=== PATIENT | male | born 1960 | race Hispanic/Latino ===

== ENCOUNTER 2017-03-23 12:50 | Emergency (ER) | payer BC, SELFPAY ==
[2017-03-23 13:41] LABS: #Lymphocytes 1.3 thou/uL (1.20-3.40); #Monocytes 0.3 thou/uL (0.11-0.59); %Basophils 0.4 % (0.0-1.0); %Eosinophils 0.7 % (0.0-10.0); %Lymphocytes 22.4 % (21.0-51.0); Hematocrit 47.7 % (42.0-52.0); Mean Platelet Volume 7.1 fL (7.4-10.4); Red Blood Cell (RBC) Count 5.39 mill/uL (4.70-6.10); White Blood Cell (WBC) Count 5.7 thou/uL (4.8-10.8)
[2017-03-23 14:08] LABS: ALT (SGPT) 16 U/L (8-55); AST (SGOT) 13 U/L (5-34); Alkaline Phosphatase 90 U/L (40-150); Anion Gap 11 mmol/L (10-20); BUN (Urea Nitrogen) 10 mg/dL (8.4-25.7); Bilirubin, Total 0.7 mg/dL (0.2-1.2); Calc. Creatinine Clearance 0 mL/min (70-130); Calcium 9.9 mg/dL (7.8-10.44); Carbon Dioxide 27 mmol/L (22-29); Chloride 104 mmol/L (98-107); Estimated GFR-MDRD 77; Globulin 4.1 g/dL (2.4-3.5); Protein, Total 8.3 g/dL (6.0-8.3)
[2017-03-23 14:29] LABS: Troponin I Less than 0.010 ng/mL (< 0.028)
--- NOTE | 2017-03-23 14:30 | RAD ---
CHEST 1 VIEW: Date: 03/23/17 HISTORY: Chest pain. COMPARISON: 01/27/17. FINDINGS: Cardiac silhouette is magnified by projection. Pulmonary vasculature is unremarkable. Mediastinum is midline. There is no lobar consolidation or evidence of pneumothorax. exhibition carver leads overlie the chest. IMPRESSION: No active cardiopulmonary abnormalities are demonstrated. POS: H
--- NOTE | 2017-03-23 14:54 | CT ---
NONCONTRAST ENHANCED CT IMAGES LUMBAR SPINE: HISTORY: Back pain. FINDINGS: Axial images are obtained with coronal and sagittal reconstructions. T12-L1: Unremarkable. L1-2: No evidence of disk herniations or spinal stenosis seen. L2: There is a large interosseous hemangioma, diameter measuring approximately 2.4 x 2.7 cm. L2-3: Unremarkable. L3: There is a small central L3 interosseous hemangioma, diameter measuring approximately 9 mm. L3-4: Unremarkable. L4-5: There is a mild broad-based disk bulge. Mild facet hypertrophy is seen. Central canal and n eural foramen are patent. L4-S1: Vacuum disk changes seen. Disk space height loss is seen. Bilateral facet hypertrophy is s een. There is a broad-based disk-osteophyte complex posteriorly compressing the thecal sac resultin g in minimal but not significant evidence of central spinal stenosis seen. Mild to moderate bilater al neural foraminal narrowing is seen due to facet as well as osteophyte encroachment. IMPRESSION: L5-S1 disk desiccation and disk-osteophyte complex. POS: [facility]
[2017-03-23] MEDS ORDERED: Dexamethasone 4 mg/ml Vial ONE (15:27)
--- NOTE | 2017-03-23 16:51 | MRI ---
MRI LUMBAR SPINE WITH AND WITHOUT GADOLINIUM CONTRAST: 03/23/17 HISTORY: Low back pain. Disc herniation. COMPARISON: CT examination from 03/23/17. FINDINGS: Vertebral body heights and alignment are maintained. Large hemangioma is apparent within the L2 vert ebral body. Smaller hemangioma is evident in the L3 vertebral body. T12-L1, L1-2, L2-3, L3-4: The central canal and neural foramina are patent. L4-5: There is desiccation of the intervertebral disc. Mild disc bulge is present without significan t central canal stenosis. The neural foramina are patent. L5-S1: There is disc space narrowing and a small posterior central disc protrusion. Minimal effaceme nt of the thecal sac results. Degenerative changes result in moderate bilateral foraminal stenoses, left greater than right. IMPRESSION: Degenerative changes are most pronounced at the lumbosacral junction, with stenosis of each neural f oramen, left greater than right. Clinical correlation regarding the L5 dermatomes is required. POS: [facility]
== END 2017-03-23 17:50 | disposition home or self-care (01) ==
LOC: ERS 12:50
DX: M51.16 Intervertebral disc disorders with radiculopathy, lumbar region (principal); E78.5 Hyperlipidemia, unspecified; F41.9 Anxiety disorder, unspecified; I10 Essential (primary) hypertension; J45.909 Unspecified asthma, uncomplicated
CPT/HCPCS: 36415; 71010; 72131; 72158; 80053; 82553; 84484; 85025; 93005; 96374; 96375; J1100; J2270

== ENCOUNTER 2017-03-27 17:45 | Emergency (ER) | payer SELFPAY | END 2017-03-27 20:27 | disposition home or self-care (01) | LOC: ERS 17:45 | DX: M48.061 Spinal stenosis, lumbar region without neurogenic claudication (principal); E78.5 Hyperlipidemia, unspecified; I10 Essential (primary) hypertension; J45.909 Unspecified asthma, uncomplicated; F41.9 Anxiety disorder, unspecified | CPT/HCPCS: 96374; J2270 ==

== ENCOUNTER 2018-04-06 02:55 | Emergency (ER) | payer BC, SELFPAY ==
[2018-04-06] MEDS ORDERED: predniSONE 20 MG TAB ONE (04:38)
[2018-04-06 04:51] LABS: #Eosinphils 0.1 thou/uL (0.0-0.7); #Lymphocytes 1.5 thou/uL (1.20-3.40); #Monocytes 0.4 thou/uL (0.11-0.59); #Neutrophils 5.2 thou/uL (1.40-6.50); %Basophils 0.6 % (0.0-1.0); %Eosinophils 1.2 % (0.0-10.0); %Lymphocytes 20.2 % (21.0-51.0); Hemoglobin 14.7 g/dL (14.0-18.0); Mean Corpuscular Hemoglobin 29.2 pg (27.0-31.0); Mean Corpuscular Volume 85.9 fL (78.0-98.0); Mean Platelet Volume 7.7 fL (7.4-10.4); Platelet Count 266 thou/uL (130-400); RBC Distribution Width 12.3 % (11.5-14.5); Red Blood Cell (RBC) Count 5.03 mill/uL (4.70-6.10); White Blood Cell (WBC) Count 7.3 thou/uL (4.8-10.8)
[2018-04-06 05:03] LABS: ALT (SGPT) 26 U/L (8-55); AST (SGOT) 18 U/L (5-34); Alkaline Phosphatase 108 U/L (40-150); Anion Gap 14 mmol/L (10-20); BUN (Urea Nitrogen) 21 mg/dL (8.4-25.7); Bilirubin, Total 0.6 mg/dL (0.2-1.2); Calc. Creatinine Clearance 0 mL/min (70-130); Calcium 9.5 mg/dL (7.8-10.44); Carbon Dioxide 22 mmol/L (22-29); Chloride 107 mmol/L (98-107); Estimated GFR-MDRD 73; Globulin 3.9 g/dL (2.4-3.5); Glucose 131 mg/dL (70-105); Potassium 3.9 mmol/L (3.5-5.1); Protein, Total 7.9 g/dL (6.0-8.3); Sodium 139 mmol/L (136-145)
--- NOTE | 2018-04-06 08:34 | RAD ---
CHEST 1 VIEW: COMPARISON: 03/23/2017. HISTORY: Cough. FINDINGS: Normal cardiac silhouette. The pulmonary vessels and hilum are normal. Costophrenic angles are bernardino r. No masses or consolidation. No pneumothorax or osseous abnormalities. IMPRESSION: No acute cardiopulmonary process. POS: [facility]
== END 2018-04-06 06:00 | disposition home or self-care (01) ==
LOC: ERS 02:55
DX: J45.991 Cough variant asthma (principal); E78.5 Hyperlipidemia, unspecified; I10 Essential (primary) hypertension; F41.9 Anxiety disorder, unspecified
CPT/HCPCS: 36415; 71045; 80053; 85025; J7506; J7620

== ENCOUNTER 2018-04-22 06:45 | Emergency (ER) | payer BC ==
[2018-04-22] MEDS ORDERED: Ondansetron PF 4 MG/2 ML Vial ONE (07:22)
[2018-04-22] MEDS ORDERED: Morphine 4 MG/ML VIAL ONE (07:22)
[2018-04-22 07:24] LABS: #Eosinphils 0.2 thou/uL (0.0-0.7); #Lymphocytes 1.8 thou/uL (1.20-3.40); #Monocytes 0.7 thou/uL (0.11-0.59); #Neutrophils 6.1 thou/uL (1.40-6.50); %Basophils 0.4 % (0.0-1.0); %Eosinophils 1.7 % (0.0-10.0); %Lymphocytes 20.8 % (21.0-51.0); %Monocytes 7.6 % (0.0-10.0); %Neutrophils 69.5 % (42.0-75.0); Hemoglobin 15.1 g/dL (14.0-18.0); Mean Corpuscular Hemoglobin 28.9 pg (27.0-31.0); Mean Corpuscular Volume 87.6 fL (78.0-98.0); Mean Platelet Volume 7.9 fL (7.4-10.4); Platelet Count 263 thou/uL (130-400); RBC Distribution Width 12.6 % (11.5-14.5); Red Blood Cell (RBC) Count 5.23 mill/uL (4.70-6.10); White Blood Cell (WBC) Count 8.7 thou/uL (4.8-10.8)
[2018-04-22 07:31] LABS: ALT (SGPT) 29 U/L (8-55); AST (SGOT) 20 U/L (5-34); Albumin 3.9 g/dL (3.5-5.0); Alkaline Phosphatase 99 U/L (40-150); Anion Gap 11 mmol/L (10-20); BUN (Urea Nitrogen) 10 mg/dL (8.4-25.7); Bilirubin, Total 0.6 mg/dL (0.2-1.2); Calc. Creatinine Clearance 0 mL/min (70-130); Calcium 9.4 mg/dL (7.8-10.44); Carbon Dioxide 26 mmol/L (22-29); Chloride 104 mmol/L (98-107); Estimated GFR-MDRD 86; Globulin 3.9 g/dL (2.4-3.5); Glucose 110 mg/dL (70-105); Lipase 16 U/L (8-78); Potassium 4.3 mmol/L (3.5-5.1); Protein, Total 7.8 g/dL (6.0-8.3); Sodium 137 mmol/L (136-145)
[2018-04-22 07:48] LABS: Bilirubin Negative (Negative); Blood, Urine Negative (Negative); Clarity CLEAR (Clear); Glucose, Urine (Dipstick) Negative (Negative); Leukocyte Negative (Negative); Nitrite Negative (Negative); Protein, Urine (Dipstick) Negative (Neg-Trace); Specific Gravity, Urine 1.012 (1.002-1.036); Urobilinogen 0.2 mg/dL (0.2-1.0); pH, Urine 6.5 (5.0-9.0)
--- NOTE | 2018-04-22 09:05 | CT ---
ABDOMEN AND PELVIC CT SCAN WITH IV CONTRAST: HISTORY: A 57-year-old male with a history of pain. COMPARISON: 04/09/2016. FINDINGS: The lung staton are clear. Multiple stable focal masses within the right and left lobes of the liver w hich are enhancing with an appearance most consistent with that of benign cavernous hemangiomas, stab le from the 04/09/2016 study. There is some focal fat stranding and pericolonic inflammation at the level of the upper left colon, evidence for acute diverticulitis. This is in a very similar location to the diverticulitis seen at the time of the 04/09/2016 study. Evidence for a duodenal diverticulu m. Stable right renal cyst. Small fat-containing right inguinal hernia. No CT evidence for acute a ppendicitis. IMPRESSION: Scattered diverticulosis with some focal pericolonic fat stranding at the level of the upper left col on, evidence for acute diverticulitis, but with a similar overall appearance from 2016. Multiple sta ble liver lesions, evidence for cavernous hemangioma. Small right renal cyst. Small fat-containing right inguinal hernia. Mild nonspecific linear stranding in the lung bases and a small bulla. Consider followup endoscopy with attenuation to the abnormal-appearing left colon after the acute div erticulitis episode has resolved to ensure that there is no underlying neoplastic process. POS: [facility]
[2018-04-22] MEDS ORDERED: ISOVUE-370 76%-LOCM 1 ML ONE (15:02)
== END 2018-04-22 08:54 | disposition home or self-care (01) ==
LOC: ERS 06:45
DX: K57.32 Diverticulitis of large intestine without perforation or abscess without bleeding (principal); E78.5 Hyperlipidemia, unspecified; I10 Essential (primary) hypertension; J45.909 Unspecified asthma, uncomplicated; F41.9 Anxiety disorder, unspecified; Z79.899 Other long term (current) drug therapy
CPT/HCPCS: 74177; 80053; 81003; 83690; 85025; 87086; 96361; 96374; 96375; J2270; J2405

== ENCOUNTER 2018-06-30 22:26 | Emergency (ER) | payer BC ==
--- NOTE | 2018-06-30 23:06 | RAD ---
CHEST ONE VIEW: History: Cough. Comparison: 04-06-18 FINDINGS: Heart size is within normal limits. No confluent pneumonia, overt edema, or pleural effusion. Minimal linear and stable chronic lung changes. IMPRESSION: Minimal chronic lung changes, stable. No confluent pneumonia, overt edema, or other acute process. At herosclerosis of the aorta. POS: [facility]
== END 2018-06-30 23:32 | disposition home or self-care (01) ==
LOC: ERS 22:26
DX: J01.90 Acute sinusitis, unspecified (principal); J20.9 Acute bronchitis, unspecified; E78.5 Hyperlipidemia, unspecified; I10 Essential (primary) hypertension; J45.909 Unspecified asthma, uncomplicated; F41.9 Anxiety disorder, unspecified
CPT/HCPCS: 71045; 87081; 87430; 87804

== ENCOUNTER 2018-12-25 06:17 | Observation (INO) | payer BC ==
[2018-12-25] MEDS ORDERED: Ondansetron ODT 4 MG TAB ONE (06:28)
[2018-12-25 06:56] LABS: #Lymphocytes 0.5 thou/uL (1.20-3.40); #Monocytes 0.5 thou/uL (0.11-0.59); #Neutrophils 9.5 thou/uL (1.40-6.50); %Eosinophils 0.4 % (0.0-10.0); %Monocytes 4.3 % (0.0-10.0); %Neutrophils 90.3 % (42.0-75.0); Hemoglobin 15.7 g/dL (14.0-18.0); Mean Corpuscular HGB CONC 32.6 g/dL (32.0-36.0); Mean Corpuscular Hemoglobin 28.4 pg (27.0-31.0); Mean Corpuscular Volume 87.2 fL (78.0-98.0); Mean Platelet Volume 7.6 fL (7.4-10.4); Platelet Count 249 thou/uL (130-400); RBC Distribution Width 12.6 % (11.5-14.5); Red Blood Cell (RBC) Count 5.53 mill/uL (4.70-6.10); White Blood Cell (WBC) Count 10.5 thou/uL (4.8-10.8)
[2018-12-25 07:21] LABS: ALT (SGPT) 24 U/L (8-55); AST (SGOT) 14 U/L (5-34); Albumin 4.1 g/dL (3.5-5.0); Alkaline Phosphatase 86 U/L (40-150); Anion Gap 14 mmol/L (10-20); BUN (Urea Nitrogen) 16 mg/dL (8.4-25.7); CK (CPK) 94 U/L (30-200); Calc. Creatinine Clearance 0 mL/min (70-130); Calcium 9.4 mg/dL (7.8-10.44); Carbon Dioxide 24 mmol/L (22-29); Chloride 103 mmol/L (98-107); Estimated GFR-MDRD 75; Globulin 3.8 g/dL (2.4-3.5); Glucose 115 mg/dL (70-105); Lipase 17 U/L (8-78); Potassium 4.3 mmol/L (3.5-5.1); Protein, Total 7.9 g/dL (6.0-8.3); Sodium 137 mmol/L (136-145)
[2018-12-25] MEDS ORDERED: Morphine 4 MG/ML VIAL ONE (07:36)
[2018-12-25] MEDS ORDERED: Pantoprazole 40 MG VIAL ONE (07:36)
--- NOTE | 2018-12-25 07:46 | RAD ---
Chest one view HISTORY: Chest pain. COMPARISON: 06/30/2018. FINDINGS: Cardiac silhouette is magnified by projection. Pulmonary vasculature is unremarkable. Media stinum is midline. No confluent airspace consolidation or evidence of pneumothorax. IMPRESSION: No active cardiopulmonary abnormalities are demonstrated.
--- NOTE | 2018-12-25 08:43 | ULT ---
Gallbladder ultrasound: Multiple grayscale images of right upper quadrant obtained according to protocol. INDICATION: Pain FINDINGS: Liver: Hepatic steatosis. Gallbladder: Normal Gallbladder wall: Normal. Navarro's Sign: Negative Common bile duct is normal. Ascites: None Incidental 1.8 cm right renal cyst is smaller in volume comparing to prior ultrasound January 2017. IMPRESSION: Normal gallbladder. Hepatic steatosis. Right renal cyst is redemonstrated.
[2018-12-25 10:45] LABS: Troponin I Less than 0.010 ng/mL (< 0.028)
[2018-12-25 11:49] LABS: Troponin I Less than 0.010 ng/mL (< 0.028)
[2018-12-25 14:42] LABS: Troponin I Less than 0.010 ng/mL (< 0.028)
[2018-12-25] MEDS ORDERED: Acetaminophen/Codeine 30-300mg Tablet ONE (14:52)
[2018-12-25] MEDS: Acetaminophen/Codeine 30-300mg Tablet PO PRN (14:57)
[2018-12-25] MEDS ORDERED: Nitroglycerin 0.4 MG TAB (25 Tab Bottle) SL PRN (15:34)
[2018-12-25 16:50] VITALS: BMI 29.5
[2018-12-25] MEDS ORDERED: Lidocaine 2% Viscous Solution 20 ML, Aluminum & Magnesium Hydroxide 30 ML, Donnatal Eli... SSW SCH (17:00)
[2018-12-25] MEDS ORDERED: Nitroglycerin 0.4 MG TAB (25 Tab Bottle) SL SCH (17:00)
[2018-12-25] MEDS ORDERED: Pantoprazole 40 MG VIAL IVP SCH (17:00)
[2018-12-25] MEDS ORDERED: Acetaminophen 650 MG Suppository PR PRN (19:05)
[2018-12-25] MEDS ORDERED: Ondansetron ODT 4 MG TAB PO PRN (19:05)
[2018-12-25] MEDS ORDERED: Ondansetron PF 4 MG/2 ML Vial IVP PRN (19:05)
[2018-12-25] MEDS ORDERED: Senokot S 8.6-50 MG TAB PO PRN (19:05)
[2018-12-25] MEDS ORDERED: Acetaminophen 325 MG TAB PO PRN (19:05)
[2018-12-25] MEDS ORDERED: Polyethylene Glycol 3350 17 GM Packet PO PRN (19:07)
[2018-12-25] MEDS ORDERED: Simethicone Chewable 80 MG TAB PO PRN (19:08)
[2018-12-25] MEDS ORDERED: Polyethylene Glycol 3350 17 GM Packet PO SCH (19:30)
--- NOTE | 2018-12-25 20:17 | HP ---
CHIEF COMPLAINT: Epigastric pain. HISTORY OF PRESENT ILLNESS: Mr. Cedillo is 58-year-old man, who presents after being walking from his sleep around 10:30 p.m., last night with epigastric discomfort, which he states was severe, 10/10, and radiating to his back. He reports experiencing nausea and vomiting of yellow fluid. It did not alleviate his pain. He states the pain remained intermittent until given Tylenol No. 3 in the emergency department. The patient states he has not experienced pain like this in the past. He was referred from the emergency room for ACS rule out. At present, his pain is absent. He does, however, report experiencing abdominal bloating that has not improved. He has been passing flatus and had a very small bowel movement this morning, though he denies any straining. Denies having any urinary symptoms. No recent fevers, chills, or sweats. Has not noted any blood in the stool. REVIEW OF SYSTEMS: All other review of systems is negative. Though, he does report an occasional cough that is nonproductive and without any hemoptysis, for the last 2 days. PAST MEDICAL HISTORY: 1. Hypertension. 2. Asthma. 3. Diverticulitis. 4. Anxiety. 5. Chronic back pain. PAST SURGICAL HISTORY: Removal of cyst from neck. SOCIAL HISTORY: The patient denies any tobacco use, drug use, or alcohol consumption. He had a couple of beers 2 or 3 days ago, but states this is rare for him. ALLERGIES: NO KNOWN DRUG ALLERGIES. CURRENT MEDICATIONS: 1. Lisinopril. 2. Omeprazole. PHYSICAL EXAMINATION: GENERAL: The patient appears well developed, well nourished, is in no acute distress. VITAL SIGNS: Temperature 98.4, pulse 67, respirations 16, O2 saturation 96% on room air, blood pressure 108/72. HEENT: Normocephalic and atraumatic. Pupils are equal, round, and reactive to light. Sclerae without icterus. Oropharynx is clear. NECK: Supple without lymphadenopathy. LUNGS: Clear to auscultation bilaterally without any wheezes, rales, or rhonchi. CARDIAC: Regular rate and rhythm. ABDOMEN: Tense and bloated, but nontender. No guarding or rigidity. Navarro sign, negative. No renal angle tenderness. EXTREMITIES: without lower leg swelling or edema. SKIN: Without rashes or jaundice. NEUROLOGIC: Alert and oriented x3. LABORATORY DATA: Full blood count, unremarkable. Electrolytes, normal; BUN 16, creatinine 1.02, GFR 75, glucose 115, total bilirubin 1, AST 14, ALT 24, alkaline phosphatase 86, lipase 17. Troponin, negative x4. IMAGING DATA: Chest x-ray showed no active cardiopulmonary abnormalities. Abdominal ultrasound showed normal gallbladder with hepatic steatosis and a right renal cyst. IMPRESSION AND PLAN: Mr. Cedillo is a pleasant 58-year-old man, who is being referred for management of the followin. Acute coronary syndrome rule out. The patient states he has not experienced any chest pain, but rather epigastric discomfort and did experience nausea and vomiting with this. Discomfort remained intermittent until given Tylenol No. 3 in the emergency department. Since then, his pain has fully resolved. Troponins, negative x3. Chest x-ray, unremarkable, and EKG without any ST changes or T-wave abnormalities. He has undergone a stress test in November of 2016, which was unremarkable. He also had a CT dissection in January of 2017, which demonstrated scattered low-density lesions within the hepatic parenchyma. No evidence of aneurysm was noted in the thoracic or abdominal aorta at that time. Unlikely, he would have developed an aneurysm since then. The patient is hemodynamically stable. We will obtain a CT abdomen and pelvis. Discomfort does not appear to be cardiac in nature; therefore, we will hold on further cardiac investigations for now. 2. Constipation. We will initiate stool softeners, and we will give gentle hydration. 3. Hypertension. We will resume lisinopril and monitor blood pressure. 4. Gastroesophageal reflux disease. We will resume home omeprazole. 5. Deep venous thrombosis prophylaxis with mechanical SCDs. 6. Code status, full. His surrogate decision maker is his , Adia Cedillo. The patient's case was discussed with Dr. Moreira, who agrees upon care as described above. Job ID: [id number]
[2018-12-25] MEDS: Sodium Chloride 0.9% 1,000 ML IV SCH (21:15)
[2018-12-26 05:42] LABS: #Eosinphils 0.1 thou/uL (0.0-0.7); #Lymphocytes 1.2 thou/uL (1.20-3.40); #Monocytes 0.5 thou/uL (0.11-0.59); #Neutrophils 3.2 thou/uL (1.40-6.50); %Basophils 0.2 % (0.0-1.0); %Eosinophils 2.3 % (0.0-10.0); %Lymphocytes 23.5 % (21.0-51.0); %Monocytes 9.2 % (0.0-10.0); %Neutrophils 64.9 % (42.0-75.0); Hemoglobin 13.4 g/dL (14.0-18.0); Mean Corpuscular HGB CONC 33.5 g/dL (32.0-36.0); Mean Corpuscular Hemoglobin 29.5 pg (27.0-31.0); Mean Corpuscular Volume 88.1 fL (78.0-98.0); Platelet Count 192 thou/uL (130-400); RBC Distribution Width 12.4 % (11.5-14.5); Red Blood Cell (RBC) Count 4.53 mill/uL (4.70-6.10); White Blood Cell (WBC) Count 4.9 thou/uL (4.8-10.8)
[2018-12-26 06:11] LABS: Anion Gap 9 mmol/L (10-20); BUN (Urea Nitrogen) 9 mg/dL (8.4-25.7); Calc. Creatinine Clearance 113 mL/min (70-130); Calcium 8.7 mg/dL (7.8-10.44); Carbon Dioxide 25 mmol/L (22-29); Chloride 106 mmol/L (98-107); Estimated GFR-MDRD Greater than 90; Glucose 96 mg/dL (70-105); Potassium 3.7 mmol/L (3.5-5.1); Sodium 136 mmol/L (136-145)
[2018-12-26] MEDS ORDERED: Lisinopril 10 MG TAB PO SCH (09:00)
[2018-12-26] MEDS ORDERED: Regadenoson 0.4 MG/5 ML SYRINGE ONE (10:19)
[2018-12-26] MEDS: Sodium Chloride 0.9% 1,000 ML IV SCH (11:51)
[2018-12-26] MEDS: Acetaminophen/Codeine 30-300mg Tablet PO PRN (14:04)
[2018-12-26 15:58] VITALS: BP 123/67; TEMP 97.9
--- NOTE | 2018-12-26 16:02 | PDOC.PN ---
- Subjective Encounter Start Date: 12/26/18 Encounter Start Time: 16:01 Subjective: Patient states he is feeling significantly better. Has normal stools last -: night that were soft, twice. This morning still received Miralax and now -: with diarrhea x 4. Denies any abdominal pain. Bloating improved. No n/v. No chest pain or sob. Mild headache that went away with tylenol. Tolerating food following stress test. No other complaints. - Objective Resuscitation Status - Order Detail: 12/25/18 19:05 Resuscitation Status Routine Co-Sign Provider: Resuscitation Status: FULL: Full Resuscitation Vital Signs & Weight: Vital Signs (12 hours) Temp Pulse Resp BP BP Pulse Ox 12/26/18 15:52 97.9 F 67 16 123/67 96 12/26/18 13:12 98.5 F 73 18 132/70 95 12/26/18 08:34 121/68 12/26/18 08:00 98.1 F 76 16 124/65 96 12/26/18 05:00 71 18 121/68 96 Weight Weight 188 lb 11.2 oz I&O: 12/25/18 12/26/18 12/27/18 06:59 06:59 06:59 Intake Total 600 Balance 600 Result Diagrams: 12/26/18 05:24 12/26/18 05:24 Phys Exam - Physical Examination Constitutional: NAD HEENT: PERRLA, moist MMs, sclera anicteric Neck: no nodes, supple, full ROM Respiratory: clear to auscultation bilateral Cardiovascular: RRR Gastrointestinal: soft, non-tender, no distention Musculoskeletal: no edema, pulses present Neurological: normal sensation, moves all 4 limbs Psychiatric: normal affect, A&O x 3 Skin: no rash Dx/Plan (1) Diarrhea Code(s): R19.7 - DIARRHEA, UNSPECIFIED Status: Acute Plan: Constipation at presentation, treated with Miralax. Normal stools now diarrhea x 2, watery. Will check for c. diff if negative will give imodium x 1 only to avoid constipation. (2) Chest pain Code(s): R07.9 - CHEST PAIN, UNSPECIFIED Status: Resolved (3) Cervical radiculopathy Code(s): M54.12 - RADICULOPATHY, CERVICAL REGION Status: Chronic (4) Dyslipidemia Code(s): E78.5 - HYPERLIPIDEMIA, UNSPECIFIED Status: Chronic (5) HTN (hypertension) Code(s): I10 - ESSENTIAL (PRIMARY) HYPERTENSION Status: Chronic Qualifiers: - Plan cont current plan of care S/p stress test. Awaiting results. Symptoms improved. * .
--- NOTE | 2018-12-26 16:09 | NM ---
NUCLEAR MEDICINE CARDIAC PERFUSION EXAMINATION WITH EJECTION FRACTION: HISTORY: A 58-year-old male with chest pain and hypertension. TECHNIQUE: A single-day nuclear medicine cardiac perfusion examination was performed. Rest images were obtained using 9.8 millicuries of technetium 99m sestamibi. Stress images were obtained using 27.4 millicuri es of technetium 99m sestamibi and Lexiscan. FINDINGS: Tomographic images show no fixed or reversible perfusion defects. Gated images show normal wall isidro on with an ejection fraction greater than 70%. EDV is 75 mL. LHR is 0.3. TID is 1.2. IMPRESSION: No evidence of ischemia. POS: C
--- NOTE | 2018-12-27 07:50 | DIS ---
DATE OF ADMISSION: 12/25/2018 DATE OF DISCHARGE: 12/26/2018 CONSULTING PHYSICIAN: None. DISCHARGE DIAGNOSES: 1. Abdominal pain with bloating, resolved. 2. Constipation, resolved. 3. Hypertension. 4. Hyperlipidemia. 5. Obesity. 6. Hepatic steatosis, longstanding. HOSPITAL COURSE: Mr. Cedillo is a 58-year-old man, who presented with complaints of epigastric discomfort and abdominal bloating as well as constipation. Given his history of hypertension and hyperlipidemia, the patient was referred for ACS rule out. He underwent an EKG that showed no ST changes or T-wave abnormalities. Troponin's were negative x3. He did undergo a stress test, which was normal, showing no evidence of reversible ischemia. The patient had a right upper quadrant gallbladder ultrasound, which showed a normal gallbladder with hepatic steatosis and right renal cyst previously seen and measuring 1.8 cm. A chest x-ray was also done at initial presentation showing no active cardiopulmonary abnormalities. Laboratory studies had demonstrated a normal full blood count and no electrolyte disturbances. His creatinine was 1.02 and GFR 75 initially and improved to 0.85 and was greater than 90 respectively. LFTs unremarkable and lipase normal at 17. The patient was treated with Senna, stool softeners, and MiraLAX with significant improvement in his constipation. He had two full bowel movements yesterday evening with no blood. He has had no nausea or vomiting and has been tolerating a regular diet since completing stress test this morning. Denies any chest pain, palpitations, or shortness of breath. Vital signs have been stable with a well-controlled blood pressure. The patient did develop one episode of diarrhea, and we attempted to collect stool to rule out C. diff, but the patient's diarrhea resolved. Stool softeners discontinued. The patient feels well and is without complaints. The patient was seen and examined on day of discharge. CONDITION: Stable. ACTIVITY: As tolerated. DIET: Heart healthy. DISCHARGE MEDICATIONS: 1. Prescription given for Protonix 40 mg p.o. daily. 2. Advised to discontinue omeprazole 20 mg p.o. daily. 3. Prescription given for MiraLAX to take once daily if needed for constipation. Advised to hold if any loose stools. 4. Otherwise advised to resume all other home medications. FOLLOWUP: The patient will follow up with his primary care physician within 1 week. DISPOSITION: The patient medically cleared for discharge home on 12/26/2018. The patient's case was discussed with Dr. Moreira, who agrees with plan of care as described above. Job ID: [id number]
--- NOTE | 2018-12-28 12:15 | EKG ---
Test Reason : CP Blood Pressure : / mmHG Vent. Rate : 093 BPM Atrial Rate : 093 BPM P-R Int : 172 ms QRS Dur : 076 ms QT Int : 338 ms P-R-T Axes : 037 165 057 degrees QTc Int : 420 ms Normal sinus rhythm Indeterminate axis Inferior-posterior infarct , age undetermined Abnormal ECG Confirmed by ELKIN HALEY ([id number]), editor city DEVON IBANEZ ([id number]) on 12/28/2018 12:14:41 PM Referred By: Confirmed By:ELKIN HALEY
== END 2018-12-26 17:07 | disposition home or self-care (01) ==
LOC: ERS 06:17 → ERHOLD 09:20 → 2SW 09:57
PROVIDERS: ADMIT Internal Medicine; ATTEND Internal Medicine
DX: R14.0 Abdominal distension (gaseous) (principal); K59.00 Constipation, unspecified; I10 Essential (primary) hypertension; E78.5 Hyperlipidemia, unspecified; K76.0 Fatty (change of) liver, not elsewhere classified; G89.29 Other chronic pain; M54.9 Dorsalgia, unspecified; J45.909 Unspecified asthma, uncomplicated; Z79.899 Other long term (current) drug therapy
CPT/HCPCS: 36415; 71045; 76705; 78452; 80048; 80053; 82550; 83690; 84484; 85025; 93005; 93017; 96361; 96374; 96375; 96376; A9500; C9113; G0378; J2270; J2785; Q0162

== ENCOUNTER 2019-03-09 21:01 | Emergency (ER) | payer BC, OTHER ==
[2019-03-09] MEDS ORDERED: Proparacaine 0.5% Opth 15 ML BOT ONE (21:47)
[2019-03-09] MEDS ORDERED: Fluorescein Opthalmic Strip ONE (21:47)
== END 2019-03-09 23:08 | disposition home or self-care (01) ==
LOC: ERS 21:01
DX: S05.02XA Injury of conjunctiva and corneal abrasion without foreign body, left eye, initial encounter (principal); E78.5 Hyperlipidemia, unspecified; I10 Essential (primary) hypertension; K21.9 Gastro-esophageal reflux disease without esophagitis; F41.9 Anxiety disorder, unspecified; Z79.899 Other long term (current) drug therapy; X58.XXXA Exposure to other specified factors, initial encounter

== ENCOUNTER 2019-03-25 07:10 | Emergency (ER) | payer BC ==
[2019-03-25] MEDS ORDERED: Ondansetron PF 4 MG/2 ML Vial ONE (08:19)
[2019-03-25] MEDS ORDERED: Morphine 4 MG/ML VIAL ONE (08:19)
[2019-03-25 08:20] LABS: #Eosinphils 0.1 thou/uL (0.0-0.7); #Lymphocytes 1.2 thou/uL (1.20-3.40); #Monocytes 0.6 thou/uL (0.11-0.59); #Neutrophils 5.1 thou/uL (1.40-6.50); %Basophils 0.1 % (0.0-1.0); %Eosinophils 1.8 % (0.0-10.0); %Lymphocytes 16.7 % (21.0-51.0); %Monocytes 8.7 % (0.0-10.0); %Neutrophils 72.6 % (42.0-75.0); Hemoglobin 13.5 g/dL (14.0-18.0); Mean Corpuscular Hemoglobin 29.2 pg (27.0-31.0); Mean Corpuscular Volume 85.7 fL (78.0-98.0); Mean Platelet Volume 7.3 fL (7.4-10.4); Platelet Count 260 thou/uL (130-400); Red Blood Cell (RBC) Count 4.61 mill/uL (4.70-6.10)
[2019-03-25 08:40] LABS: ALT (SGPT) 21 U/L (8-55); AST (SGOT) 13 U/L (5-34); Albumin 3.4 g/dL (3.5-5.0); Alkaline Phosphatase 100 U/L (40-110); Anion Gap 12 mmol/L (10-20); BUN (Urea Nitrogen) 13 mg/dL (8.4-25.7); Bilirubin, Total 0.4 mg/dL (0.2-1.2); Calc. Creatinine Clearance 0 mL/min (70-130); Calcium 8.9 mg/dL (7.8-10.44); Carbon Dioxide 24 mmol/L (22-29); Chloride 105 mmol/L (98-107); Estimated GFR-MDRD Greater than 90; Globulin 3.4 g/dL (2.4-3.5); Glucose 100 mg/dL (70-105); Lipase 11 U/L (8-78); Potassium 4.1 mmol/L (3.5-5.1); Protein, Total 6.8 g/dL (6.0-8.3); Sodium 137 mmol/L (136-145)
[2019-03-25 09:06] LABS: Bilirubin Negative (Negative); Blood, Urine Negative (Negative); Clarity Clear (Clear); Glucose, Urine (Dipstick) Normal (Negative); Leukocyte Negative Leu/uL (Negative); Nitrite Negative (Negative); Protein, Urine (Dipstick) Negative (Neg-Trace); Urobilinogen Normal mg/dL (Less than 2)
--- NOTE | 2019-03-25 09:11 | CT ---
CT ABDOMEN AND PELVIS WITH IV CONTRAST: HISTORY: Abdominal pain. Left lower quadrant pain. COMPARISON: 04/09/2016 04/22/2018 FINDINGS: There are dependent changes in the lung bases. Multiple lesions in the liver, consistent with hemangi omas, are stable. The spleen, pancreas, adrenal glands and left kidney are normal. The cyst in the ri ght kidney is stable. No calcified gallstones are noted. The duodenal diverticulum is again seen. No free air, free fluid or lymphadenopathy is seen in the abdomen or pelvis. The small bowel loops ar e not abnormally dilated. There is colonic diverticulosis. There is pericolonic inflammatory change i n the left lower quadrant. No abnormally loculated fluid collection is noted to suggest abscess forma tion. There are vascular calcifications without evidence of aneurysmal dilatation of the abdominal aorta. T here are degenerative changes in the spine. IMPRESSION: 1. Sigmoid diverticulitis in the left lower quadrant. 2. Hepatic hemangiomas. 3. Right renal cyst. 4. Duodenal diverticulum. POS: OFF
[2019-03-25] MEDS ORDERED: metroNIDAZOLE 250 MG TAB ONE (09:13)
[2019-03-25] MEDS ORDERED: Ciprofloxacin 500 MG TAB ONE (09:13)
[2019-03-25] MEDS ORDERED: ISOVUE-370 76%-LOCM 1 ML ONE (10:00)
--- NOTE | 2019-03-29 23:23 | EKG ---
Test Reason : Blood Pressure : / mmHG Vent. Rate : 068 BPM Atrial Rate : 068 BPM P-R Int : 190 ms QRS Dur : 086 ms QT Int : 404 ms P-R-T Axes : 018 010 029 degrees QTc Int : 429 ms Normal sinus rhythm Inferior infarct , age undetermined Abnormal ECG Confirmed by CARMEN RAO DO ([id number]), managing editor EMILIANA CISSE ([id number]) on 03/29/2019 11:22:48 PM Referred By: Confirmed By:CARMEN RAO DO
== END 2019-03-25 10:18 | disposition home or self-care (01) ==
LOC: ERS 07:10
DX: K57.32 Diverticulitis of large intestine without perforation or abscess without bleeding (principal); E78.5 Hyperlipidemia, unspecified; I10 Essential (primary) hypertension; J45.909 Unspecified asthma, uncomplicated; K21.9 Gastro-esophageal reflux disease without esophagitis; F41.9 Anxiety disorder, unspecified; R11.0 Nausea; Z79.899 Other long term (current) drug therapy
CPT/HCPCS: 36415; 74177; 80053; 81003; 83690; 85025; 93005; 96361; 96374; 96375; J2270; J2405; Q9966

== ENCOUNTER 2019-05-09 07:21 | Emergency (ER) | payer BC ==
[2019-05-09 07:49] LABS: #Eosinphils 0.2 thou/uL (0.0-0.7); #Lymphocytes 1.7 thou/uL (1.20-3.40); #Monocytes 0.7 thou/uL (0.11-0.59); #Neutrophils 6.5 thou/uL (1.40-6.50); %Basophils 0.5 % (0.0-1.0); %Eosinophils 2.1 % (0.0-10.0); %Lymphocytes 18.8 % (21.0-51.0); %Monocytes 7.6 % (0.0-10.0); Hemoglobin 14.7 g/dL (14.0-18.0); Mean Corpuscular HGB CONC 33.6 g/dL (32.0-36.0); Mean Corpuscular Hemoglobin 28.9 pg (27.0-31.0); Mean Corpuscular Volume 85.9 fL (78.0-98.0); Mean Platelet Volume 7.9 fL (7.4-10.4); Platelet Count 249 thou/uL (130-400); RBC Distribution Width 12.3 % (11.5-14.5); Red Blood Cell (RBC) Count 5.08 mill/uL (4.70-6.10); White Blood Cell (WBC) Count 9.1 thou/uL (4.8-10.8)
[2019-05-09 07:53] LABS: Bilirubin Negative (Negative); Blood, Urine Negative (Negative); Clarity Clear (Clear); Glucose, Urine (Dipstick) Normal (Negative); Leukocyte Negative Leu/uL (Negative); Nitrite Negative (Negative); Protein, Urine (Dipstick) Negative (Neg-Trace); Urobilinogen Normal mg/dL (Less than 2)
[2019-05-09 08:07] LABS: ALT (SGPT) 25 U/L (8-55); AST (SGOT) 16 U/L (5-34); Alkaline Phosphatase 98 U/L (40-110); Anion Gap 9 mmol/L (10-20); BUN (Urea Nitrogen) 11 mg/dL (8.4-25.7); Bilirubin, Total 0.9 mg/dL (0.2-1.2); Calc. Creatinine Clearance 0 mL/min (70-130); Calcium 9.5 mg/dL (7.8-10.44); Carbon Dioxide 29 mmol/L (22-29); Chloride 105 mmol/L (98-107); Estimated GFR-MDRD 82; Globulin 3.8 g/dL (2.4-3.5); Glucose 102 mg/dL (70-105); Potassium 4.1 mmol/L (3.5-5.1); Protein, Total 7.8 g/dL (6.0-8.3); Sodium 139 mmol/L (136-145)
[2019-05-09] MEDS ORDERED: Ketorolac Tromethamine 30 MG/ML VIAL ONE (08:11)
--- NOTE | 2019-05-09 08:30 | CT ---
CT ABDOMEN WITH CONTRAST CT PELVIS WITH CONTRAST: DATE: 05/09/2019 HISTORY: 58-year-old male with worsening abdominal pain COMPARISON: 03/25/2019 TECHNIQUE: IV injection of iodinated contrast media: administered. Oral contrast media:Not administered FINDINGS: Large number of diverticula throughout the descending colon and proximal sigmoid colon. Once again, l ocalized focal mural thickening and mural edema at proximal sigmoid colon surrounded by edema, similar to prior CTA. No organized abscess or extraluminal gas. 2.5 x 2 x 2.5 cm exophytic hemorrhagic renal cyst pedunculated protruding superiorly from upper pole cortex of right kidney. 2 x 3 x 2.5 cm hepatic hemangioma hepatic segment 6. Rest of liver unremarkable. Normal left kidney, adrenals, pancreas, spleen, and appendix. Decompressed urinary bladder. No small bowel dilation. Lung bases are grossly clear. IMPRESSION: Recurrence of acute colonic diverticulitis at proximal sigmoid colon.
[2019-05-09] MEDS ORDERED: Iopamidol-370 76% 500 ML 1 ML ONE (11:35)
== END 2019-05-09 09:58 | disposition home or self-care (01) ==
LOC: ERS 07:21
DX: K57.32 Diverticulitis of large intestine without perforation or abscess without bleeding (principal); I10 Essential (primary) hypertension; E78.5 Hyperlipidemia, unspecified; J45.909 Unspecified asthma, uncomplicated; F41.9 Anxiety disorder, unspecified; Z79.899 Other long term (current) drug therapy
CPT/HCPCS: 74177; 80053; 81003; 83605; 85025; 96374; J1885; Q9967

== ENCOUNTER 2021-07-19 07:09 | Emergency (ER) | payer BC ==
[2021-07-19 08:11] LABS: #Eosinphils 0.2 thou/uL (0.0-0.7); #Lymphocytes 1.3 thou/uL (1.20-3.40); #Monocytes 0.5 thou/uL (0.11-0.59); #Neutrophils 4.7 thou/uL (1.40-6.50); %Basophils 0.3 % (0.0-1.0); %Eosinophils 3.4 % (0.0-10.0); %Neutrophils 70.3 % (42.0-75.0); Hemoglobin 14.7 g/dL (14.0-18.0); Mean Corpuscular HGB CONC 34.4 g/dL (32.0-36.0); Mean Corpuscular Volume 87.2 fL (78.0-98.0); Mean Platelet Volume 7.1 fL (7.4-10.4); Platelet Count 256 thou/uL (130-400); RBC Distribution Width 12.1 % (11.5-14.5); White Blood Cell (WBC) Count 6.7 thou/uL (4.8-10.8)
[2021-07-19 08:31] LABS: ALT (SGPT) 29 U/L (8-55); AST (SGOT) 17 U/L (5-34); Albumin 3.6 g/dL (3.4-4.8); Alkaline Phosphatase 88 U/L (40-110); Anion Gap 13 mmol/L (10-20); BUN (Urea Nitrogen) 11 mg/dL (8.4-25.7); Bilirubin, Total 0.7 mg/dL (0.2-1.2); Calc. Creatinine Clearance 0 mL/min (70-130); Calcium 8.7 mg/dL (7.8-10.44); Carbon Dioxide 24 mmol/L (23-31); Chloride 104 mmol/L (98-107); Globulin 3.3 g/dL (2.4-3.5); Glucose 103 mg/dL (80-115); Potassium 3.9 mmol/L (3.5-5.1); Protein, Total 6.9 g/dL (5.8-8.1); Sodium 137 mmol/L (136-145)
[2021-07-19] MEDS ORDERED: Albuterol 200 PUFF (6.7GM INHALER) ONE (08:56)
[2021-07-19 10:06] LABS: Troponin I Less than 0.010 ng/mL (< 0.028)
[2021-07-19 11:29] LABS: SARS-CoV-2 PCR by NAA Not Detected (NotDetected)
== END 2021-07-19 10:58 | disposition home or self-care (01) ==
LOC: ERS 07:09
DX: J20.9 Acute bronchitis, unspecified (principal); I49.8 Other specified cardiac arrhythmias; I10 Essential (primary) hypertension; E78.5 Hyperlipidemia, unspecified; J45.909 Unspecified asthma, uncomplicated; K21.9 Gastro-esophageal reflux disease without esophagitis; Z20.822 Contact with and (suspected) exposure to COVID-19
CPT/HCPCS: 36415; 71045; 80053; 83880; 84484; 85025; 87804; 93005; U0003; U0005

== ENCOUNTER 2021-10-06 12:41 | Observation (INO) | payer BC ==
[2021-10-06 12:59] LABS: #Eosinphils 0.1 thou/uL (0.0-0.7); #Lymphocytes 1.9 thou/uL (1.20-3.40); #Monocytes 0.5 thou/uL (0.11-0.59); #Neutrophils 4.5 thou/uL (1.40-6.50); %Basophils 0.7 % (0.0-1.0); %Eosinophils 1.2 % (0.0-10.0); %Lymphocytes 27.4 % (21.0-51.0); %Monocytes 7.3 % (0.0-10.0); %Neutrophils 63.4 % (42.0-75.0); Mean Corpuscular HGB CONC 34.1 g/dL (32.0-36.0); Mean Corpuscular Hemoglobin 29.9 pg (27.0-31.0); Mean Corpuscular Volume 87.9 fL (78.0-98.0); Mean Platelet Volume 7.9 fL (7.4-10.4); Platelet Count 278 thou/uL (130-400); RBC Distribution Width 12.8 % (11.5-14.5); Red Blood Cell (RBC) Count 5.33 mill/uL (4.70-6.10); White Blood Cell (WBC) Count 7.1 thou/uL (4.8-10.8)
[2021-10-06] MEDS ORDERED: Nitroglycerin 2% Ointment 1 INCH/1 GM Packet ONE (13:02)
[2021-10-06] MEDS ORDERED: Aspirin Chewable 81 MG TAB ONE (13:02)
[2021-10-06 13:24] LABS: ALT (SGPT) 39 U/L (8-55); AST (SGOT) 22 U/L (5-34); Albumin 4.3 g/dL (3.4-4.8); Alkaline Phosphatase 103 U/L (40-110); Anion Gap 14 mmol/L (10-20); BUN (Urea Nitrogen) 12 mg/dL (8.4-25.7); Bilirubin, Total 0.8 mg/dL (0.2-1.2); Calc. Creatinine Clearance 0 mL/min (70-130); Calcium 9.7 mg/dL (7.8-10.44); Carbon Dioxide 26 mmol/L (23-31); Chloride 102 mmol/L (98-107); Glucose 114 mg/dL (80-115); Lipase 15 U/L (8-78); Potassium 3.7 mmol/L (3.5-5.1); Protein, Total 8.3 g/dL (5.8-8.1); Sodium 138 mmol/L (136-145)
[2021-10-06] MEDS ORDERED: Acetaminophen 325 MG TAB PO PRN (13:52)
[2021-10-06] MEDS ORDERED: Aspirin/APAP/Caffeine Tab (Excedrin Migraine) PO PRN ×2 (13:52→14:00)
[2021-10-06] MEDS ORDERED: Ondansetron PF 4 MG/2 ML Vial IVP PRN (13:52)
[2021-10-06] MEDS ORDERED: Polyethylene Glycol 3350 17 GM Packet PO PRN (13:52)
[2021-10-06] MEDS ORDERED: Nitroglycerin 0.4 MG TAB (25 Tab Bottle) SL PRN (13:55)
[2021-10-06] MEDS ORDERED: Enoxaparin Sodium 40 MG/0.4 ML SYRINGE SC SCH (14:00)
[2021-10-06 16:29] VITALS: BMI 31.0
[2021-10-06 17:12] LABS: Troponin I Less than 0.010 ng/mL (< 0.028)
[2021-10-07 04:44] LABS: #Eosinphils 0.2 thou/uL (0.0-0.7); #Lymphocytes 1.9 thou/uL (1.20-3.40); #Monocytes 0.4 thou/uL (0.11-0.59); #Neutrophils 2.7 thou/uL (1.40-6.50); %Basophils 0.4 % (0.0-1.0); %Eosinophils 3.6 % (0.0-10.0); %Lymphocytes 36.7 % (21.0-51.0); %Monocytes 8.2 % (0.0-10.0); %Neutrophils 51.1 % (42.0-75.0); Hemoglobin 13.9 g/dL (14.0-18.0); Mean Corpuscular Hemoglobin 28.5 pg (27.0-31.0); Mean Platelet Volume 7.8 fL (7.4-10.4); Platelet Count 234 thou/uL (130-400); RBC Distribution Width 12.5 % (11.5-14.5); Red Blood Cell (RBC) Count 4.89 mill/uL (4.70-6.10); White Blood Cell (WBC) Count 5.2 thou/uL (4.8-10.8)
[2021-10-07 05:10] LABS: Anion Gap 13 mmol/L (10-20); BUN (Urea Nitrogen) 12 mg/dL (8.4-25.7); Calc. Creatinine Clearance 111 mL/min (70-130); Calcium 8.8 mg/dL (7.8-10.44); Carbon Dioxide 24 mmol/L (23-31); Cardiac Risk 4.8 (Less than 4.5); Chloride 104 mmol/L (98-107); Cholesterol 172 mg/dl (< 200 Desired); Glucose 91 mg/dL (80-115); HDL Cholesterol 36 mg/dL (>60 Neg Risk); LDL Cholesterol, Calculated 118 mg/dL; Potassium 3.9 mmol/L (3.5-5.1); Sodium 137 mmol/L (136-145); Triglycerides 88 mg/dL (Less than 150)
[2021-10-07 07:46] VITALS: TEMP 97.6
[2021-10-07] MEDS ORDERED: Aspirin 81 mg Enteric Coated Tablet PO SCH (09:00)
[2021-10-07] MEDS ORDERED: Enoxaparin Sodium 40 MG/0.4 ML SYRINGE SC SCH (09:00)
[2021-10-07] MEDS ORDERED: Lisinopril 10 MG TAB PO SCH (09:00)
[2021-10-07] MEDS ORDERED: Regadenoson 0.4 MG/5 ML SYRINGE ONE (09:40)
[2021-10-07 11:59] VITALS: BP 126/74
[2021-10-07 12:10] LABS: SARS-CoV-2 PCR by NAA Not Detected (NotDetected)
== END 2021-10-07 14:15 | disposition home or self-care (01) ==
LOC: ERS 12:41 → 2SW 13:57
PROVIDERS: ADMIT Student in an Organized Health Care Education/Training Program; ATTEND Student in an Organized Health Care Education/Training Program
DX: R07.89 Other chest pain (principal); E78.5 Hyperlipidemia, unspecified; I11.9 Hypertensive heart disease without heart failure; K21.9 Gastro-esophageal reflux disease without esophagitis; E66.9 Obesity, unspecified; Z68.31 Body mass index [BMI] 31.0-31.9, adult; Z87.891 Personal history of nicotine dependence; Z79.899 Other long term (current) drug therapy; Z20.822 Contact with and (suspected) exposure to COVID-19
CPT/HCPCS: 36415; 71045; 78452; 80048; 80053; 80061; 83690; 84484; 85025; 93005; 93017; 94760; 96372; A9500; G0378; J1650; J2785; U0003; U0005

== ENCOUNTER 2021-11-26 14:07 | Emergency (ER) | payer BC ==
[2021-11-26] MEDS ORDERED: Albuterol 200 PUFF (6.7GM INHALER) ONE (16:29)
[2021-11-26] MEDS ORDERED: predniSONE 20 MG TAB ONE (16:29)
[2021-11-26 17:15] LABS: SARS-CoV-2 NAA Rapid Test Not Detected (NotDetected)
== END 2021-11-26 18:01 | disposition home or self-care (01) ==
LOC: ERS 14:07
DX: J45.901 Unspecified asthma with (acute) exacerbation (principal); Z20.822 Contact with and (suspected) exposure to COVID-19; E78.5 Hyperlipidemia, unspecified; I10 Essential (primary) hypertension; K21.9 Gastro-esophageal reflux disease without esophagitis
CPT/HCPCS: 71046; 93005; J7512; U0002

== ENCOUNTER 2022-08-25 21:57 | Emergency (ER) | payer BC ==
[2022-08-25] MEDS ORDERED: Morphine 4 MG/ML VIAL ONE (22:53)
[2022-08-25] MEDS ORDERED: Ondansetron PF 4 MG/2 ML Vial ONE (22:53)
[2022-08-25 23:10] LABS: #Eosinphils 0.2 thou/uL (0.0-0.7); #Lymphocytes 2.1 thou/uL (1.20-3.40); #Monocytes 0.8 thou/uL (0.11-0.59); %Basophils 0.5 % (0.0-1.0); %Eosinophils 2.3 % (0.0-10.0); %Lymphocytes 29.4 % (21.0-51.0); %Neutrophils 56.8 % (42.0-75.0); Hemoglobin 14.4 g/dL (14.0-18.0); Mean Corpuscular HGB CONC 34.1 g/dL (32.0-36.0); Mean Corpuscular Hemoglobin 30.1 pg (27.0-31.0); Mean Corpuscular Volume 88.2 fl (78.0-98.0); Mean Platelet Volume 8.3 fL (7.4-10.4); Platelet Count 257 10x3/uL (130-400); RBC Distribution Width 12.6 % (11.5-14.5); Red Blood Cell (RBC) Count 4.78 mill/uL (4.70-6.10); White Blood Cell (WBC) Count 7.1 10x3/uL (4.8-10.8)
[2022-08-25 23:42] LABS: ALT (SGPT) 22 U/L (8-55); AST (SGOT) 16 U/L (5-34); Albumin 3.7 g/dL (3.4-4.8); Alkaline Phosphatase 86 U/L (40-110); Anion Gap 14 mmol/L (10-20); BUN (Urea Nitrogen) 13 mg/dL (8.4-25.7); Bilirubin, Total 0.4 mg/dL (0.2-1.2); Calc. Creatinine Clearance 0 mL/min (70-130); Calcium 9.5 mg/dL (7.8-10.44); Carbon Dioxide 23 mmol/L (23-31); Chloride 106 mmol/L (98-107); Estimated GFR 96; Globulin 3.5 g/dL (2.4-3.5); Glucose 99 mg/dL (80-115); Lipase 15 U/L (8-78); Potassium 3.7 mmol/L (3.5-5.1); Protein, Total 7.2 g/dL (5.8-8.1); Sodium 139 mmol/L (136-145)
[2022-08-26 00:23] LABS: Bacteria/HPF None Seen HPF (None Seen); Bilirubin Negative (Negative); Blood, Urine Negative (Negative); Clarity Clear (Clear); Glucose, Urine (Dipstick) Normal (Negative); Ketone, Urine Negative (Negative); Leukocyte 75 Leu/uL (Negative); Nitrite Negative (Negative); Protein, Urine (Dipstick) Negative (Neg-Trace); RBC/HPF 0-3 HPF (0-3); Specific Gravity, Urine 1.014 (1.002-1.036); Squamous Epithelial None Seen HPF (0-3); Urobilinogen Normal mg/dL (Less than 2); WBC/HPF 0-3 HPF (0-3)
== END 2022-08-26 00:53 | disposition home or self-care (01) ==
LOC: ERS 21:57
DX: R05.9 Cough, unspecified (principal); R07.89 Other chest pain; E78.5 Hyperlipidemia, unspecified; I10 Essential (primary) hypertension; K21.9 Gastro-esophageal reflux disease without esophagitis; Z79.899 Other long term (current) drug therapy
CPT/HCPCS: 71045; 80053; 81003; 81015; 83690; 84484; 85025; 87086; 93005; 96374; 96375; J2270; J2405

== ENCOUNTER 2022-09-15 10:15 | Emergency (ER) | payer BC ==
[2022-09-15 10:39] LABS: #Eosinphils 0.1 thou/uL (0.0-0.7); #Lymphocytes 1.4 thou/uL (1.20-3.40); #Monocytes 0.6 thou/uL (0.11-0.59); #Neutrophils 5.8 thou/uL (1.40-6.50); %Basophils 0.4 % (0.0-1.0); %Eosinophils 1.1 % (0.0-10.0); %Lymphocytes 18.3 % (21.0-51.0); %Neutrophils 73.2 % (42.0-75.0); Hemoglobin 14.7 g/dL (14.0-18.0); Mean Corpuscular HGB CONC 33.9 g/dL (32.0-36.0); Mean Corpuscular Hemoglobin 30.2 pg (27.0-31.0); Mean Corpuscular Volume 89.1 fl (78.0-98.0); Mean Platelet Volume 7.5 fL (7.4-10.4); Platelet Count 255 10x3/uL (130-400); RBC Distribution Width 12.5 % (11.5-14.5); Red Blood Cell (RBC) Count 4.88 mill/uL (4.70-6.10); White Blood Cell (WBC) Count 7.9 10x3/uL (4.8-10.8)
[2022-09-15 11:02] LABS: ALT (SGPT) 26 U/L (8-55); AST (SGOT) 17 U/L (5-34); Albumin 3.8 g/dL (3.4-4.8); Alkaline Phosphatase 84 U/L (40-110); Anion Gap 11 mmol/L (10-20); BUN (Urea Nitrogen) 12 mg/dL (8.4-25.7); Bilirubin, Total 0.5 mg/dL (0.2-1.2); Calc. Creatinine Clearance 0 mL/min (70-130); Calcium 9.3 mg/dL (7.8-10.44); Carbon Dioxide 25 mmol/L (23-31); Chloride 106 mmol/L (98-107); Estimated GFR 97; Globulin 3.6 g/dL (2.4-3.5); Glucose 107 mg/dL (80-115); Lipase 10 U/L (8-78); Potassium 3.9 mmol/L (3.5-5.1); Protein, Total 7.4 g/dL (5.8-8.1); Sodium 138 mmol/L (136-145)
== END 2022-09-15 15:03 | disposition home or self-care (01) ==
LOC: ERS 10:15
DX: R07.89 Other chest pain (principal); R05.9 Cough, unspecified; I10 Essential (primary) hypertension; E78.5 Hyperlipidemia, unspecified; K21.9 Gastro-esophageal reflux disease without esophagitis; Z79.899 Other long term (current) drug therapy
CPT/HCPCS: 36415; 71045; 80053; 83690; 84484; 85025; 93005; 94760

== ENCOUNTER 2023-07-16 19:03 | Emergency (ER) | payer BC ==
[~2023-07-16 19:03] MED LIST: Iopamidol-370 76% 500 ML MDV (1 ML CHARGE) ONE
[2023-07-16 19:27] LABS: #Eosinphils 0.2 thou/uL (0.0-0.7); #Monocytes 0.7 thou/uL (0.11-0.59); #Neutrophils 3.7 thou/uL (1.40-6.50); %Basophils 0.4 % (0.0-1.0); %Lymphocytes 36.3 % (21.0-51.0); %Neutrophils 50.2 % (42.0-75.0); Mean Corpuscular Hemoglobin 29.3 pg (27.0-31.0); Mean Corpuscular Volume 85.9 fl (78.0-98.0); Platelet Count 290 10x3/uL (130-400); RBC Distribution Width 12.7 % (11.5-14.5); Red Blood Cell (RBC) Count 5.47 mill/uL (4.70-6.10); White Blood Cell (WBC) Count 7.4 10x3/uL (4.8-10.8)
[2023-07-16 19:42] LABS: ALT (SGPT) 37 U/L (8-55); AST (SGOT) 19 U/L (5-34); Albumin 4.3 g/dL (3.4-4.8); Alkaline Phosphatase 102 U/L (40-110); Anion Gap 15 mmol/L (10-20); BUN (Urea Nitrogen) 14 mg/dL (8.4-25.7); Bilirubin, Total 0.6 mg/dL (0.2-1.2); Calc. Creatinine Clearance 0 mL/min (70-130); Calcium 9.6 mg/dL (7.8-10.44); Carbon Dioxide 24 mmol/L (23-31); Chloride 104 mmol/L (98-107); Estimated GFR 73; Globulin 3.8 g/dL (2.4-3.5); Glucose 110 mg/dL (80-115); Potassium 3.8 mmol/L (3.5-5.1); Protein, Total 8.1 g/dL (5.8-8.1); Sodium 139 mmol/L (136-145)
[2023-07-16 19:50] LABS: CRP (Inflammatory) Less than 0.50 mg/dL (= or < 0.5); Lipase 19 U/L (8-78); Magnesium 2.2 mg/dL (1.6-2.6)
[2023-07-16 19:55] LABS: Troponin I Less than 0.010 ng/mL (< 0.028)
[2023-07-16 20:14] LABS: SARS-CoV-2 NAA Rapid Test Not Detected (NotDetected)
[2023-07-16] MEDS ORDERED: Ketorolac Tromethamine 30 MG (1 mL) VIAL ONE (20:24)
[2023-07-16] MEDS ORDERED: Metoclopramide HCl 10 MG (2 mL) VIAL ONE (20:24)
[2023-07-16 20:27] LABS: PTT 26.7 sec (22.9-36.1); Prothrombin Time 12.9 sec (12.0-14.7)
[2023-07-16 20:36] LABS: D-Dimer Test Less than 0.27 mcg/mL (0.27-0.43)
== END 2023-07-16 21:00 | disposition home or self-care (01) ==
LOC: ERS 19:03
DX: G43.809 Other migraine, not intractable, without status migrainosus (principal); I10 Essential (primary) hypertension; Z87.891 Personal history of nicotine dependence
CPT/HCPCS: 36415; 70450; 70496; 70498; 71045; 80053; 83605; 83690; 83735; 84443; 84484; 85025; 85379; 85610; 85730; 86140; 86850; 86900; 86901; 93005; 94760; 96365; 96375; J1885; J2765; Q9967

== ENCOUNTER 2024-05-05 06:31 | Emergency (ER) | payer BC ==
[2024-05-05 07:04] LABS: #Basophils Less than 0.03 10x3/uL (0.0-0.2); %Basophils 0.2 % (0.0-1.0); %Eosinophils 2.1 % (0.0-10.0); %Lymphocytes 14.6 % (21.0-51.0); %Monocytes 10.3 % (0.0-10.0); %Neutrophils 72.6 % (42.0-75.0); Hematocrit 43.1 % (42.0-52.0); Hemoglobin 14.8 g/dL (14.0-18.0); Mean Corpuscular HGB CONC 34.3 g/dL (32.0-36.0); Mean Corpuscular Hemoglobin 29.4 pg (27.0-31.0); Mean Corpuscular Volume 85.7 fL (78.0-98.0); Mean Platelet Volume 10.2 fL (7.4-10.4); Platelet Count 242 10x3/uL (130-400); RBC Distribution Width 13.2 % (11.5-14.5); Red Blood Cell (RBC) Count 5.03 mill/uL (4.70-6.10)
[2024-05-05 07:14] LABS: ALT (SGPT) 22 U/L (8-55); AST (SGOT) 15 U/L (5-34); Albumin 3.5 g/dL (3.4-4.8); Alkaline Phosphatase 84 U/L (40-110); Anion Gap 14 mmol/L (10-20); BUN (Urea Nitrogen) 15 mg/dL (8.4-25.7); Bilirubin, Total 0.6 mg/dL (0.2-1.2); Calc. Creatinine Clearance 0 mL/min (70-130); Calcium 8.7 mg/dL (7.8-10.44); Carbon Dioxide 24 mmol/L (23-31); Chloride 106 mmol/L (98-107); Estimated GFR 89; Globulin 3.9 g/dL (2.4-3.5); Glucose 104 mg/dL (80-115); Lipase 19 U/L (8-78); Potassium 3.4 mmol/L (3.5-5.1); Protein, Total 7.4 g/dL (5.8-8.1); Sodium 141 mmol/L (136-145)
[2024-05-05] MEDS ORDERED: Ondansetron PF 4 MG/2 ML Vial ONE (07:18)
[2024-05-05] MEDS ORDERED: Morphine 2 MG/ML VIAL ONE (07:18)
[2024-05-05 07:20] LABS: Troponin I Less than 0.010 ng/mL (< 0.028)
[2024-05-05] MEDS ORDERED: Iopamidol-370 76% 500 ML MDV (1 ML CHARGE) ONE (15:19)
[2024-05-06 14:47] LABS: Campy jejuni + coli by PCR Negative (Negative); STEC Shiga Toxin 1+2 Negative (Negative); Salmonella spp. by PCR Negative (Negative)
[2024-05-06 14:52] LABS: Shigella spp + EIEC by PCR Negative (Negative)
== END 2024-05-05 11:11 | disposition home or self-care (01) ==
LOC: ERS 06:31
DX: E86.0 Dehydration (principal); R19.7 Diarrhea, unspecified; I10 Essential (primary) hypertension; E78.5 Hyperlipidemia, unspecified; K21.9 Gastro-esophageal reflux disease without esophagitis; Z79.899 Other long term (current) drug therapy; Z87.891 Personal history of nicotine dependence
CPT/HCPCS: 36415; 71045; 74177; 76705; 80053; 83605; 83690; 84484; 85025; 87324; 87449; 87505; 93005; 96361; 96374; 96375; J2272; J2405; Q9967

== ENCOUNTER 2025-06-04 08:14 | Emergency (ER) | payer MEDICARE ==
[2025-06-04] MEDS ORDERED: Ondansetron PF 4 MG/2 ML Vial ONE (09:44)
[2025-06-04 09:58] LABS: #Basophils 0.03 10x3/uL (0.0-0.2); #Eosinophils 0.13 10x3/uL (0.0-0.7); #Monocytes 0.51 10x3/uL (0.11-0.59); #Neutrophils 5.94 10x3/uL (1.40-6.50); %Basophils 0.4 % (0.0-1.0); %Eosinophils 1.6 % (0.0-10.0); %Lymphocytes 19.8 % (21.0-51.0); %Monocytes 6.2 % (0.0-10.0); %Neutrophils 71.8 % (42.0-75.0); Hematocrit 44.9 % (42.0-52.0); Hemoglobin 15.1 g/dL (14.0-18.0); Mean Corpuscular Hemoglobin 28.3 pg (27.0-31.0); Mean Corpuscular Volume 84.1 fL (78.0-98.0); Platelet Count 261 10x3/uL (130-400); Red Blood Cell (RBC) Count 5.34 mill/uL (4.70-6.10); White Blood Cell (WBC) Count 8.27 10x3/uL (4.8-10.8)
[2025-06-04 10:18] LABS: ALT (SGPT) 27 U/L (Less than 45); AST (SGOT) 21 U/L (11-34); Albumin 4.1 g/dL (3.1-4.5); Alkaline Phosphatase 90 U/L (40-110); Anion Gap 13 mmol/L (10-20); BUN (Urea Nitrogen) 12 mg/dL (8.4-25.7); Bilirubin, Total 0.6 mg/dL (0.3-1.2); Calc. Creatinine Clearance 0 mL/min (70-130); Calcium 9.8 mg/dL (7.8-10.44); Carbon Dioxide 25 mmol/L (23-31); Chloride 104 mmol/L (98-107); Globulin 4.2 g/dL (2.4-3.5); Glucose 106 mg/dL (80-115); Lipase 24 U/L (8-78); Potassium 4.4 mmol/L (3.5-5.1); Sodium 138 mmol/L (136-145)
[2025-06-04] MEDS ORDERED: Dicyclomine 20 MG TAB ONE (10:45)
== END 2025-06-04 10:52 | disposition home or self-care (01) ==
LOC: ERS 08:14
DX: A08.4 Viral intestinal infection, unspecified (principal); I10 Essential (primary) hypertension; E78.5 Hyperlipidemia, unspecified; K21.9 Gastro-esophageal reflux disease without esophagitis; J45.909 Unspecified asthma, uncomplicated; Z87.891 Personal history of nicotine dependence; Z79.899 Other long term (current) drug therapy; Z79.51 Long term (current) use of inhaled steroids
CPT/HCPCS: 71045; 80053; 83690; 85025; 87428; J2405; 96360